=== PATIENT | female | born 1965 | race Caucasian/White ===

== ENCOUNTER 2017-05-16 09:21 | Emergency (ER) | payer OTHER ==
[2017-05-16 11:37] VITALS: BP 97/67
[2017-05-16] MEDS ORDERED: HYDROcodone/ACETAMIN 5-325 MG* 1 TAB PO ONE (11:42)
--- NOTE | 2017-05-16 12:14 | RAD ---
CLINICAL HISTORY: Back pain, dysuria, hematuria COMPARISON: None TECHNIQUE: Multiple contiguous axial CT scans were obtained of the abdomen and pelvis, without intravenous contrast enhancement. Coronal and sagittal multiplanar reformations are submitted for review. Oral contrast was not administered. FINDINGS: The study is limited by the lack of intravenous contrast. This limits evaluation of the solid organs and vasculature. LUNG BASES: The lung bases are clear. LIVER: The liver is normal in shape, size, contour, and attenuation. BILE DUCTS: There is no intrahepatic or extrahepatic biliary dilatation. GALLBLADDER: The gallbladder is normal, without pericholecystic inflammatory change. PANCREAS: The pancreas is normal, without mass or ductal dilatation. SPLEEN: Normal in size and appearance. UPPER GI TRACT: Evaluation of the gastrointestinal tract is limited by incomplete gastric distention. The upper GI tract is unremarkable. SMALL BOWEL AND MESENTERY: The small bowel is normal in contour, course, and caliber. There is no obstruction or dilatation. COLON: The colon is normal in contour, course, caliber. There is no pericolonic inflammatory change. ADRENALS: Normal bilaterally. KIDNEYS: The kidneys are normal in shape, size, contour, and axis. There is no hydronephrosis or nephrolithiasis. BLADDER: The bladder is incompletely distended but is grossly normal. PELVIC ORGANS: The uterus is homogeneously enlarged. AORTA: The aorta is normal. IVC: Unremarkable LYMPH NODES: There is no lymphadenopathy by size criteria. ABDOMINAL WALL: There is no evidence for abdominal wall hernia. BONES AND SOFT TISSUES: There are bilateral pars defects at L5 with grade 1 anterolisthesis. There are degenerative changes at L5-S1 OTHER: None IMPRESSION: 1. NO HYDRONEPHROSIS OR NEPHROLITHIASIS. 2. HOMOGENEOUSLY ENLARGED UTERUS SUGGESTIVE OF FIBROID UTERUS. 3. SPONDYLOLYSIS WITH SPONDYLOLISTHESIS AT L5-S1
--- NOTE | 2017-05-19 09:59 | ED ---
Progress - Progress Note Progress Note: STOP MEDICATIONS. IF SYMPTOMS WORSE THEN GO TO ER/PCP/UROLOGY. Course/Dx - Diagnoses Provider Diagnoses: Back pain
--- NOTE | 2017-06-04 22:01 | UC ---
Ivon Jimenez Auryana, scribed for DebbieTerri DO Tyra on 05/16/17 at 1142 . Back Pain HPI - HPI Summary HPI Summary: 52 year old female presents with lower left back pain starting 3 days. She reports that the pain is a 8/10 and does not radiate. She is characterized as a sharp pain that is constant but intermittently worse in pain. She also has polydipsia with polyuria but denies fever, chills, nausea, vomiting , chest pain, SOB, cough, or any pain on urination. Pain is aggravated by movement and not improved by oxymorphone, ibuprofen 600 mg, or a heating pad. PMHx is significant for chronic knee and shoulder pain (Rx - oxymorphone - Dr. Contreras), no PMHx of HTN. FHx is significant for HTN but no history of CAD or DM. She denies any history of tobacco use. - History of Current Complaint Chief Complaint: UCBackPain Stated Complaint: BACK PAIN Time Seen by Provider: 05/16/17 11:33 Hx Obtained From: Patient Hx Last Menstrual Period: 09/08/15 ?: No Onset/Duration: Gradual Onset, Lasting Days - 3, Still Present Timing: Constant, Intermittent - intermittently worse Severity Initially: Severe Severity Currently: Severe Pain Intensity: 8 Pain Scale Used: 0-10 Numeric Back Pain: Is Discrete @ - left lower back pain Character: Sharp Aggravating: Movement Alleviating: Nothing Associated Signs And Symptoms: Negative: Swelling, Redness, Bruising, Fever, Weakness, Numbness, Tingling, Bladder Incontinence, Bowel Incontinence, Weight Loss - Allergies/Home Medications Allergies/Adverse Reactions: Allergies Allergy/AdvReac Type Severity Reaction Status Date / Time No Known Allergies Allergy Verified 05/16/17 09:48 Home Medications: Home Medications DULoxetine DR CAP* [Cymbalta CAP*] 1 tab PO 05/16/17 [History] Oxymorphone (NF) [Opana (NF)] 1 tab PO BID 05/16/17 [History Confirmed 05/16/17] PMH/Surg Hx/FS Hx/Imm Hx - Additional Past Medical History Additional PMH: chronic shoulder and knee pain; cording pain s/p surgery on knees - Surgical History Surgical History: Yes Surgery Procedure, Year, and Place: KNEE X 2 - Family History Known Family History: Positive: Hypertension Negative: Cardiac Disease, Diabetes - Social History Occupation: Employed Full-time Lives: With Family Alcohol Use: None Substance Use Type: None, Prescribed - oxymorphone Smoking Status (MU): Never Smoked Tobacco Have You Smoked in the Last Year: No - Immunization History Most Recent Tetanus Shot: 2 yrs ago Review of Systems Constitutional: Negative Skin: Negative Eyes: Negative ENT: Negative Respiratory: Negative Cardiovascular: Negative Gastrointestinal: Negative Genitourinary: Frequency - polyuria and polydipsia, Other - lower back pain Motor: Negative Neurovascular: Negative Musculoskeletal: Negative Neurological: Negative Psychological: Negative All Other Systems Reviewed And Are Negative: Yes Physical Exam Triage Information Reviewed: Yes Appearance: Well-Appearing, No Pain Distress, Well-Nourished Vital Signs: Initial Vital Signs Temp 97.9 F 05/16/17 09:50 Pulse 80 05/16/17 09:50 Resp 18 05/16/17 09:50 BP 100/62 05/16/17 09:50 Pulse Ox 100 05/16/17 09:50 Vital Signs Reviewed: Yes Eyes: Positive: Conjunctiva Clear. Negative: Discharge ENT: Positive: Hearing grossly normal. Negative: Muffled/hoarse voice Neck exam: Normal Neck: Positive: Supple Respiratory: Positive: Lungs clear, Normal breath sounds, No respiratory distress, No accessory muscle use Cardiovascular Exam: Normal Cardiovascular: Positive: RRR Abdomen Description: Positive: Nontender, Soft. Negative: CVA Tenderness (R), CVA Tenderness (L), Distended, Guarding, McBurney's Point Tenderness Bowel Sounds: Positive: Present Musculoskeletal Exam: Normal Neurological: Positive: Alert, Muscle Tone Normal Psychological Exam: Normal Psychological: Positive: Age Appropriate Behavior Skin Exam: Normal, Other - warm, dry, color normal Back Pain Course/Dx - Course Course Of Treatment: ABD/PEL CT-. IMPRESSION: 1. NO HYDRONEPHROSIS OR NEPHROLITHIASIS. 2. HOMOGENEOUSLY ENLARGED UTERUS SUGGESTIVE OF FIBROID UTERUS. 3. SPONDYLOLYSIS WITH SPONDYLOLISTHESIS AT L5-S1 - Differential Dx/Diagnosis Differential Diagnosis/HQI/PQRI: Arthritis, Herniated Disc, Renal Colic, Strain , Sprain Provider Diagnoses: U.T.I. Hematuria. Low back pain. SPONDYLOLYSIS WITH SPONDYLOLISTHESIS Discharge - Discharge Plan Condition: Stable Disposition: HOME Prescriptions: Cyclobenzaprine TAB* [Flexeril TAB*] 10 mg PO TID PRN #30 tab PRN Reason: Pain Sulfamethox/Trimethoprim DS* [Bactrim DS 800/160 TAB*] 1 tab PO BID #10 tab predniSONE TAB* [Deltasone TAB*] 40 mg PO DAILY #10 tab Patient Education Materials: Urinary Tract Infection in Women (ED), Low Back Strain (ED), Hematuria (ED), Acute Low Back Pain (ED), Spondylolisthesis (ED) Referrals: Mariana Art MD [Primary Care Provider] - (FOLLOW UP IN 3-5 DAYS) Additional Instructions: YOU CAN CALL FOR URINE CULTURE RESULTS IN 2 DAYS. ANTIBIOTIC THERAPY: You have been given an antibiotic prescription. It's important that you take all the medication, unless instructed otherwise by your physician. Failure to complete the entire course can result in relapse of your condition. Common side effects of antibiotics include nausea, intestinal cramping, or diarrhea. Women may develop vaginal yeast infections, and babies can get yeast (thrush) in the mouth following the use of antibiotics. Contact your physician if you develop significant side effects from this medication. Allergy to this antibiotic can result in hives, wheezing, faintness, or itching. If symptoms of allergy occur, stop the medication and call the doctor. ANYTIME YOU TAKE AN ANTIBIOTIC, IT IS IMPORTANT TO REPLENISH THE BODY'D SUPPLY OF "GOOD BACTERIA." YOU CAN GET GOOD BACTERIA FROM HIGH QUALITY CULTURED FOODS SUCH LOCAL YOGURT, SOUR KRAUT, R[employer]SEVELT JAMILAH, NATURALLY FERMENTED PICKLES AND PROBIOTIC DRINKS. YOU CAN ALSO GET GOOD BACTERIA FROM A PROBIOTIC SUPPLEMENT. MUSCLE RELAXERS: Muscle relaxing medications are usually prescribed for acute muscle spasm or injury to the neck and back. They are often combined with antiinflammatory pain medication for increased relief. You may stop the muscle relaxer when the pain and stiffness have improved. Start the medication again if spasms recur. Muscle relaxers may cause drowsiness, especially with the first dose. Do not operate machinery or drive while under the effects of the medication. Most muscle relaxers last up to 24 hours. Do not combine the medication with alcohol. DISCUSSED, THIS MEDICATION CAN CROSS REACT WITH YOUR ANTIDEPRESSANT. PLEASE GO TO THE ED OR RETURN FOR RE-EVALUATION IF YOUR DEVELOP ANY OF THE FOLLOWING: FEVERS, AGGITATION, SWEATING, HEADACHE,SHIVERING, TACHYCARDIA, CONFUSION, TWITCHING, NAUSEA, VOMITING OR TREMORS. CORTICOSTEROID MEDICATION: You have been given a medicine of the cortisone class. This medication is used to control inflammation or allergy. It is usually only given for a short period of time, until the acute process subsides. There are usually no side effects from short-term use of cortisone-like medications. Some persons feel an increased sense of well-being and are not sleepy at bedtime. Long-term use of cortisone medications is best avoided, unless required for a severe condition. If your condition does not remit, or relapses after the course of corticosteroid medication, you should consult your physician. Contact the physician if you develop lightheadedness, black or tarry stools , swelling of the legs, or significant rapid change in weight. YOU WOULD LIKELY BENEFIT FROM OSTEOPATHIC TREATMENT. WE RECOMMEND THAT YOU FIND AN OSTEOPATHIC PHYSICIAN IN YOUR AREA WHO FOCUSES EXCLUSIVELY ON OSTEOPATHIC MANIPULATIVE MEDICINE WITH EXPERTISE IN MYOFACIAL, LYMPHATIC, VISCERAL AND INTEROSSEOUS WORK The documentation as recorded by the Ivon akhtar Auryana accurately reflects the service I personally performed and the decisions made by me, Terri Lewis DO.
== END 2017-05-16 13:07 | disposition home or self-care (01) ==
LOC: UCEAST 09:21
DX: N39.0 Urinary tract infection, site not specified (principal); R31.9 Hematuria, unspecified; M54.5 Low back pain; M43.07 Spondylolysis, lumbosacral region; G89.29 Other chronic pain; M25.519 Pain in unspecified shoulder; M25.569 Pain in unspecified knee
CPT/HCPCS: 74176; 81003; 87086; 99212; G0463

== ENCOUNTER 2019-06-25 18:00 | Emergency (ER) | payer MEDICARE, OTHER | END 2019-06-25 18:16 | disposition left against medical advice (07) | LOC: UCEAST 18:00 | DX: Z53.8 Procedure and treatment not carried out for other reasons (principal) ==